=== PATIENT | female | born 1995 | race Caucasian/White ===

== ENCOUNTER 2016-10-22 03:02 | Emergency (ER) | payer BC ==
[~2016-10-22] VITALS: Ht 160 cm; Wt 68.0 kg
[2016-10-22 03:05] VITALS: TEMP 36.5; Ht 160 cm; Wt 68.0 kg
[2016-10-22] MEDS ORDERED: ONDANSETRON INJ 2 MG/ML 2 ML VIAL IV STA ×2 (03:14→05:33)
[2016-10-22] MEDS ORDERED: SODIUM CHLORIDE 0.9% 1000ML 1,000 ML IV STA ×2 (03:14→05:19)
--- NOTE | 2016-10-22 03:32 | EMERGENCY ROOM VISIT NOTE ---
History Report prepared by Nataleeibyogesh: Nadia Fregoso Under the Supervision of: Dr. Tirso Nelson M.D. First contact with patient: 03:08 Chief Complaint: VOMITING Stated Complaint: VOMITING History of Present Illness The patient is a 20 year old female who presents to the Emergency Room with complaints of persistent vomiting that began about 8 hours [employer]. She also complains of multiple episodes of diarrhea and abdominal cramping which began around the same time. Her abdominal pain is intermittent in nature. The patient notes that she ate turkey burgers last evening and is unsure if they were completely cooked but she cannot recall eating any other suspicious foods. She does report one sick contact who recently had similar GI symptoms on her floor. Source of History: patient Onset: 7 hours [employer] Position: other (GI) Quality: other (vomiting) Timing: other (persistent) Associated Symptoms: + abdominal pain, + diarrhea Review of Systems See HPI for pertinent positives & negatives. A total of 10 systems reviewed and were otherwise negative. Past Medical & Surgical Medical Problems: (1) No Known Active Medical Problems Family History No pertinent family history stated. Social History Smoking Status: Never Smoker Occupation Status: [employer] student Current/Historical Medications Scheduled Control Pills ( Control Pills), 1 TAB PO DAILY Ondasetron Odt (Zofran Odt), 4 MG SL Q6H Allergies Coded Allergies: No Known Allergies (Unverified , 10/22/16) Physical Exam Vital Signs Date Time Temp Pulse Resp B/P Pulse Ox O2 Delivery O2 Flow Rate FiO2 10/22/16 07:22 95 18 108/73 95 10/22/16 07:02 95 18 108/73 95 Room Air 10/22/16 05:57 81 18 105/64 94 Room Air 10/22/16 04:40 81 18 115/69 97 Room Air 10/22/16 03:42 90 10/22/16 03:05 36.5 99 24 134/81 100 Room Air Physical Exam GENERAL: Patient is a healthy-appearing well-nourished HEAD: Normocephalic atraumatic EYES: Ocular movements intact pupils equal and react to light OROPHARYNX mucous membranes are moist no exudates present no erythema or edema present NECK: Supple no nuchal rigidity CHEST: Good equal expansion LUNGS: Clear and equal to auscultation CARDIAC: Normal S1 and S2 ABDOMEN: Soft, tender in the epigastric area, no guarding BACK: No CVA tenderness EXTREMITIES: No pain upon palpation normal muscle strength in all groups no clubbing cyanosis or edema NEURO: Patient is following commands is answering questions appropriately. Alert and oriented x3 Cranial Nerves 2-12 grossly intact Medical Decision & Procedures ER Provider Diagnostic Interpretation: X-ray results as stated below per my interpretation. Other radiology results as stated below per my review and radiologist interpretation: Chest x-ray 1 view: No evidence of pneumonia, pneumothorax, or congestion. Abdomen x-ray 3 view: No evidence of obstruction, fracture, or constipation. US RUQ: No gallstones. Query gallbladder sludge. No evidence of GB wall thickening or pericholecystic fluid. No biliary dilatation. Liver, right kidney unremarkable. No free fluid. Radiologist: Sushil Silveira MD Laboratory Results 10/22/16 03:25 Red Blood Count 5.38, Mean Corpuscular Volume 85.1, Mean Corpuscular Hemoglobin 31.4, Mean Corpuscular Hemoglobin Concent 36.9, Mean Platelet Volume 9.7, Neutrophils (%) (Auto) 80.0, Lymphocytes (%) (Auto) 10.9, Monocytes (%) (Auto) 8.3, Eosinophils (%) (Auto) 0.5, Basophils (%) (Auto) 0.1, Neutrophils # (Auto) 11.03, Lymphocytes # (Auto) 1.51, Monocytes # (Auto) 1.15, Eosinophils # (Auto) 0.07, Basophils # (Auto) 0.02 10/22/16 03:25 Test 10/22/16 00:00 10/22/16 03:25 Urine Color DK YELLOW Urine Appearance CLEAR (CLEAR) Urine pH 5.0 (4.5-7.5) Urine Specific [place] 1.039 (1.000-1.030) Urine Protein NEG (NEG) Urine Glucose (UA) NEG (NEG) Urine Ketones 4+ (NEG) Urine Occult Blood 1+ (NEG) Urine Nitrite NEG (NEG) Urine Bilirubin NEG (NEG) Urine Urobilinogen NEG (NEG) Urine Leukocyte Esterase TRACE (NEG) Urine WBC (Auto) 1-5 /hpf (0-5) Urine RBC (Auto) 0-4 /hpf (0-4) Urine Hyaline Casts (Auto) 0 /lpf (0-5) Urine Epithelial Cells (Auto) >30 /lpf (0-5) Urine Bacteria (Auto) 1+ (NEG) Urine Mucus PRESENT (NONE PRSENT) Urine Test NEG (NEG) White Blood Count 13.81 K/uL (4.8-10.8) Red Blood Count 5.38 M/uL (4.2-5.4) Hemoglobin 16.9 g/dL (12.0-16.0) Hematocrit 45.8 % (37-47) Mean Corpuscular Volume 85.1 fL (80-100) Mean Corpuscular Hemoglobin 31.4 pg (25-34) Mean Corpuscular Hemoglobin Concent 36.9 g/dl (32-36) Platelet Count 228 K/uL (130-400) Mean Platelet Volume 9.7 fL (7.4-10.4) Neutrophils (%) (Auto) 80.0 % Lymphocytes (%) (Auto) 10.9 % Monocytes (%) (Auto) 8.3 % Eosinophils (%) (Auto) 0.5 % Basophils (%) (Auto) 0.1 % Neutrophils # (Auto) 11.03 K/uL (1.4-6.5) Lymphocytes # (Auto) 1.51 K/uL (1.2-3.4) Monocytes # (Auto) 1.15 K/uL (0.11-0.59) Eosinophils # (Auto) 0.07 K/uL (0-0.5) Basophils # (Auto) 0.02 K/uL (0-0.2) RDW Standard Deviation 37.4 fL (36.4-46.3) RDW Coefficient of Variation 12.2 % (11.5-14.5) Immature Granulocyte % (Auto) 0.2 % Immature Granulocyte # (Auto) 0.03 K/uL (0.00-0.02) Anion Gap 14.0 mmol/L (3-11) Est Creatinine Clear Calc Drug Dose 92.5 ml/min Estimated GFR () 107.4 Estimated GFR (Non- 92.6 BUN/Creatinine Ratio 21.5 (10-20) Calcium Level 9.2 mg/dl (8.5-10.1) Total Bilirubin 0.7 mg/dl (0.2-1) Direct Bilirubin 0.2 mg/dl (0-0.2) Aspartate Amino Transf (AST/SGOT) 28 U/L (15-37) Alanine Aminotransferase (ALT/SGPT) 24 U/L (12-78) Alkaline Phosphatase 52 U/L (45-117) Total Protein 8.0 gm/dl (6.4-8.2) Albumin 3.8 gm/dl (3.4-5.0) Lipase 137 U/L (73-393) Labs reviewed by ED physician. Medications Administered Medications (Trade) Dose Ordered Sig/Shayna Route Start Time Stop Time Status Last Admin Dose Admin Sodium Chloride (Nss 1000ml) 1,000 ml @ 999 mls/hr Q1H1M STAT IV 10/22/16 03:14 10/22/16 04:14 DC 10/22/16 03:25 999 MLS/HR Ondansetron HCl (Zofran Inj) 4 mg NOW STAT IV 10/22/16 03:14 10/22/16 03:15 DC 10/22/16 03:25 4 MG Ketorolac Tromethamine 30 mg 30 mg NOW STAT IV 10/22/16 03:39 10/22/16 03:41 DC 10/22/16 03:48 30 MG Promethazine HCl/ Sodium Chloride (Phenergan Inj/ Nss 50ml) 51 ml @ 204 mls/hr NOW STAT IV 10/22/16 03:43 10/22/16 03:57 DC 10/22/16 03:49 204 MLS/HR Ondansetron HCl 1 homepack 1 homepack UD STAT PO 10/22/16 05:06 10/22/16 05:08 DC 10/22/16 07:08 1 HOMEPACK Sodium Chloride (Nss 1000ml) 1,000 ml @ 999 mls/hr Q1H1M STAT IV 10/22/16 05:19 10/22/16 06:19 DC 10/22/16 05:25 999 MLS/HR Ondansetron HCl (Zofran Inj) 4 mg NOW STAT IV 10/22/16 05:33 10/22/16 05:34 DC 10/22/16 05:37 4 MG Metoclopramide HCl (Reglan Inj) 10 mg NOW STAT IV 10/22/16 05:33 10/22/16 05:34 DC 10/22/16 05:38 10 MG Diphenhydramine HCl (Benadryl Inj) 50 mg NOW STAT IV 10/22/16 05:46 10/22/16 05:47 DC 10/22/16 05:49 50 MG ED Course 0314: Ordered Zofran Inj 4 mg IV, NS 1000 ml @ 999 mls/hr IV. 0330: Past medical records reviewed. The patient was evaluated in room A4. A complete history and physical examination was performed. 0339: Ordered Toradol Inj 30 mg IV, Promethazine HCl 25 mg/NSS 51 ml @ 204 mls/ hr IV. 0506: Ordered Ondansetron HCl 1 homepack PO. 0520: The patient was starting to feel nauseous again. Ordered NSS 1000 ml @ 9999 mls/hr IV. 0533: Ordered Reglan Inj 10 mg IV, Zofran Inj 4 mg IV. Medical Decision Differential diagnosis: Etiologies such as gastroenteritis, food borne illness, infections, appendicitis , diverticulitis, inflammatory bowel disease, obstruction, GI bleed, biliary pathology, as well as others were entertained. This is a 20-year-old female who presents emergency department complaining of gastroenteritis-like symptoms. Serial abdominal examinations were performed of the patient in the emergency department and at no time did the patient exhibited abdominal tenderness. Based on this finding I felt that further imaging was not necessary. The patient was sent for a ultrasound of her gallbladder as well as x-rays of her abdomen and chest. An IV was established, patient given normal saline bolus, Zofran, Phenergan. The patient was still complaining of some nausea so she remained in the emergency department for some time. She was observed for a time in the emergency department and was able to tolerate by mouth fluids. I believe based on these findings at the patient as well as to be discharged home. Patient was in agreement with the treatment plan. Impression Primary Impression: Gastroenteritis Scribe Attestation The scribe's documentation has been prepared under my direction and personally reviewed by me in its entirety. I confirm that the note above accurately reflects all work, treatment, procedures, and medical decision making performed by me. Departure Information Dispostion Home / Self-Care Prescriptions Ondasetron Odt (ZOFRAN ODT) 4 Mg Tab 4 MG SL Q6H for Nausea, #6 TAB Prov: Tirso Nelson MD 10/22/16 Referrals No Doctor, Assigned (PCP) [facility] Forms HOME CARE DOCUMENTATION FORM, IMPORTANT VISIT INFORMATION Patient Instructions ED Diet Vomiting Diarrhea, ED Gastroenteritis Viral, My [facility], Ondansetron Hydrochloride Oral tablet Additional Instructions Take probiotic yogurt for diarrhea Take 600 mg Ibuprofen every 6 hours Take 1000 mg Tylenol every 6 hours You have been examined and treated today on an emergency basis only. This is not a substitute for, or an effort to provide, complete comprehensive medical care. It is impossible to recognize and treat all injuries or illnesses in a single emergency department visit. It is therefore important that you follow up closely with [facility]. Call as soon as possible for an appointment. Thank you for your time and consideration. I look forward to speaking with you again soon. Please don't hesitate to call us if you have any questions.
[2016-10-22 03:35] LABS: BASO % 0.1 %; BASO ABS # 0.02 K/uL (0-0.2); COMPLETE YES; EOS % 0.5 %; HEMATOCRIT 45.8 % (37-47); IG% 0.2 %; LYMPH % 10.9 %; LYMPH ABS # 1.51 K/uL (1.2-3.4); MEAN CELL VOLUME 85.1 fL (80-100); MEAN CORPUSCULAR HEMOGLOBIN 31.4 pg (25-34); MEAN CORPUSCULAR HGB CONC 36.9 g/dl (32-36); MEAN PLATELET VOLUME 9.7 fL (7.4-10.4); MONO % 8.3 %; PLATELET COUNT 228 K/uL (130-400); RED BLOOD COUNT 5.38 M/uL (4.2-5.4); WHITE BLOOD COUNT 13.81 K/uL (4.8-10.8)
[2016-10-22] MEDS ORDERED: BCPILLS PO (03:35)
[2016-10-22] MEDS ORDERED: KETOROLAC TROMETHAMINE 30 MG/ML VIAL IV STA (03:39)
[2016-10-22] MEDS ORDERED: PROMETHAZINE HCL INJ 25 MG in SODIUM CHLORIDE 0.9% 50ML 50 ML IV STA (03:43)
[2016-10-22 03:53] LABS: BUN/CREATININE RATIO 21.5 (10-20); CALCIUM 9.2 mg/dl (8.5-10.1); CREATININE 0.89 mg/dl (0.60-1.20); POTASSIUM 3.6 mmol/L (3.5-5.1)
[2016-10-22 04:57] LABS: MANUAL MICROSCOPIC REQUIRED? NO; REVIEW REQ? YES; URINE APPEARANCE CLEAR (CLEAR); URINE COLOR DK YELLOW; URINE EPITHELIAL CELL AUTO >30 /lpf (0-5); URINE NITRITE NEG (NEG); URINE SPECIFIC GRAVITY 1.039 (1.000-1.030); UROBILINOGEN NEG (NEG)
[2016-10-22 04:59] LABS: URINE BILIRUBIN NEG (NEG)
[2016-10-22] MEDS ORDERED: ONDANSETRON HOME PACK 4MG OD TAB PO STA (05:06)
[2016-10-22] MEDS ORDERED: ONDA4TAB10 SL (05:07)
[2016-10-22 05:11] LABS: URINE MUCUS PRESENT (NONE PRSENT)
[2016-10-22] MEDS ORDERED: METOCLOPRAMIDE HCL INJ 5 MG/ML 2 ML VIAL IV STA (05:33)
[2016-10-22] MEDS ORDERED: DiphenhydrAMINE HCL 50 MG/ML VIAL ONE (05:45)
[2016-10-22] MEDS ORDERED: DiphenhydrAMINE HCL 50 MG/ML VIAL IV STA (05:46)
[2016-10-22 07:22] VITALS: BP 108/73; PULSE 95; O2SAT 95
--- NOTE | 2016-10-22 07:32 | DIAGNOSTIC IMAGING REPORT ---
ABDOMINAL ULTRASOUND, RIGHT UPPER QUADRANT HISTORY: Right upper quadrant pain.. COMPARISON: None. FINDINGS: Liver morphology is normal. There is no biliary ductal dilatation. No hepatic lesions are identified. No stones are identified within the gallbladder. Trace sludge within the gallbladder is noted. There is no gallbladder wall thickening. The pancreas is sonographically normal. There is no right hydronephrosis. IMPRESSION: 1. No gallstones. Minimal gallbladder sludge. No gallbladder wall thickening. 2. No biliary ductal dilatation. Electronically signed by: Juarez Hill M.D. 10/22/2016 7:30 AM Dictated Date/Time: 10/22/2016 7:29 AM
--- NOTE | 2016-10-22 07:34 | DIAGNOSTIC IMAGING REPORT ---
PA CHEST RADIOGRAPH AND UPRIGHT AND SUPINE AP RADIOGRAPHS OF THE ABDOMEN CLINICAL HISTORY: Epigastric pain. COMPARISON STUDY: Right upper quadrant ultrasound October 22, 2016. FINDINGS: Lung volumes are normal and lungs are clear. There is no pneumothorax or pleural effusion. Cardiac size is normal. Mediastinal contours are normal. There is no free air. Bowel gas pattern is normal. A left pelvic calcification likely reflects a phlebolith. A 4 mm density projecting over the lower pole of the left kidney is equivocal for a calculus. IMPRESSION: 1. No free air or evidence of bowel obstruction. 2. No acute cardiopulmonary findings. 3. Equivocal 4 mm left renal calculus. Electronically signed by: Juarez Hill M.D. 10/22/2016 7:32 AM Dictated Date/Time: 10/22/2016 7:30 AM
== END 2016-10-22 07:26 | disposition home or self-care (01) ==
LOC: C.EDB 03:04 → C.EDA 07:26
DX: K52.9 Noninfective gastroenteritis and colitis, unspecified (principal); Z79.3 Long term (current) use of hormonal contraceptives